=== PATIENT | male | born 1985 | race Caucasian/White ===

== ENCOUNTER 2016-07-08 11:40 | Outpatient (CLI) ==
[2016-05-23 14:39] VITALS: BMI 22.8
--- NOTE | 2016-07-08 13:09 | DI ---
EXAM: Right shoulder three views HISTORY: Impingement syndrome of shoulder COMPARISON: None FINDINGS: The bones are normal. The glenohumeral joint and acromioclavicular joint are normal. No f ocal soft tissue abnormality. Visualized portion of the chest is normal. IMPERSSION: Normal examination.
--- NOTE | 2016-07-08 13:29 | DI ---
EXAM: Three views of the left shoulder. History: Left shoulder pain and impingement. Findings: No acute fracture or dislocation. No abnormal calcifications or radiopaque foreign cristina s. Joint spaces are relatively preserved. Impression: No acute osseous abnormality.
== END 2016-07-08 11:41 | disposition home or self-care (01) ==
LOC: RAD 11:40
PROVIDERS: ATTEND Pain Medicine Interventional Pain Medicine
DX: M25.511 Pain in right shoulder (principal); M25.512 Pain in left shoulder; M75.41 Impingement syndrome of right shoulder; M75.42 Impingement syndrome of left shoulder

== ENCOUNTER 2016-12-18 14:55 | Emergency (ER) ==
[2016-12-18 14:59] VITALS: BP 150/98; TEMP 98.4; BMI 24.0
--- NOTE | 2016-12-18 15:06 | ED.PDOC ---
General ED Provider: Dr. SILVIA ERICKSON JR Chief Complaint: Penile Problem Stated Complaint: states he has blisters to genital area and spreads rapidly. has itching. believes it is herpes but never diagnosed [ End ]1 week 98.4 66 20 99% 150/98 2/10 pain sexual contact with herpes(partner has past contct positive for herpes Time Seen by Physician: 15:23 Mode of Arrival: Walk-In Information Source: Patient Exam Limitations: No limitations Nursing and Triage Documentation Reviewed and Agree: No Review of Systems - Review Of Systems Constitutional: Reports: Malaise Eyes: Reports: No symptoms Ears, Nose, Mouth, Throat: Reports: No symptoms Respiratory: Reports: No symptoms Cardiac: Reports: No symptoms GI: Reports: No symptoms : Reports: No symptoms Musculoskeletal: Reports: No symptoms Skin: Reports: Lesions (weekly episodes worse last week now sexual partner with lesions), Lumps (note folliculitis , folliculitis barae and history of MRSA) Neurological: Reports: No symptoms Endocrine: Reports: No symptoms Hematologic/Lymphatic: Reports: No symptoms All Other Systems: Other Past Medical History - Past Medical History Previously Healthy: Yes Endocrine: Reports: None Cardiovascular: Reports: None Respiratory: Reports: None Hematological: Reports: None Gastrointestinal: Reports: None Genitourinary: Reports: None Neuro/Psych: Reports: None Musculoskeletal: Reports: None Cancer: Reports: None Other Pertinent Past Medical History: MRSA - Surgical History General Surgical History: Reports: Orthopedic (LEFT RING FINGER ACL RIGHT KNEE mrsa) - Family History Family History: Reports: None, Unknown - Social History Smoking Status: Current every day smoker Hx Substance Use: Yes Alcohol Screening: Occasionally Physical Exam - Physical Exam Appearance: Well-appearing Pain Distress: Moderate Eyes: TRAV, EOMI, Conjunctiva clear ENT: Ears normal, Nose normal, Oropharynx normal Neck: Supple Respiratory: Airway patent, Breath sounds clear, Breath sounds equal, Respirations nonlabored Skin: Warm, Dry, Normal color (complains of midshaft vesicles lesions noted are skin nodules with open areas consistent with itching consider lice or irritation or picking(problem with left jaw has multiple scarred areas)) Neurological: Sensation intact, Motor intact, Reflexes intact, Cranial nerves intact, Alert, Oriented Psychiatric: Affect appropriate, Mood appropriate, Anxious Critical Care Note - Critical Care Note Total Time (mins): 0 Course - Course Orders, Labs, Meds: Orders Category Date Time Status HSV 1 AND 2 IGM ABS, INDIRECT Stat LAB 12/18/16 16:10 Received HSV 1 AND 2 SPECIFIC AB, IGG Stat LAB 12/18/16 16:10 Received VAGINAL CULTURE [GENITAL CULTURE] Stat LAB 12/18/16 16:31 Ordered VIRAL CULTURE Stat LAB 12/18/16 16:20 Received Vital Signs: Temp Pulse Resp BP Pulse Ox 12/18/16 14:55 98.4 F 66 20 150/98 H 99 Departure - Departure Time of Disposition: 16:04 Disposition: HOME SELF-CARE Discharge Problem: Concern about STD in male without diagnosis, HSV infection Instructions: Sexually Transmitted Diseases (ED) Condition: Good Pt referred to PMD for follow-up: Yes Additional Instructions: follow up with PMD1-2 weeks may follow with [facility] lesions may not be herpes- testing begun watch for any evidence of lice(eggs, insects, different areas of irritation)( NONE SEEN ON EXAM TODAY) may use acyclovir 400 mg orally 3 times a day for 5 days Episodic (Intermittent) Therapy: Effective treatment requires therapy initiation within 1 day of lesion onset or during the prodrome preceding an episode/recurrence 400 mg orally 3 times a day for 5 days Prescriptions: Acyclovir [Zovirax] 400 mg PO TID PRN #30 tablet PRN Reason: lesions Allergies/Adverse Reactions: Allergies ketorolac [From Toradol] Adverse Reaction (Verified 12/18/16 15:05) Home Medications: Ambulatory Orders Acyclovir [Zovirax] 400 mg PO TID PRN #30 tablet 12/18/16
[2016-12-20 15:18] LABS: HSV 1 IGM ANTIBODIES <1:10 titer (<1:10)
[2016-12-20 16:26] LABS: HSV 2 IGM ANTIBODIES <1:10 titer (<1:10)
== END 2016-12-18 16:59 | disposition home or self-care (01) ==
LOC: ED 14:55
DX: R21 Rash and other nonspecific skin eruption (principal); Z20.2 Contact with and (suspected) exposure to infections with a predominantly sexual mode of transmission
CPT/HCPCS: 36415; 86695; 86696; 87252; 99283